=== PATIENT | male | born 1950 | race Native Hawaiian/Other Pacific Islander ===

== ENCOUNTER 2023-01-28 17:32 | Emergency (ER) | payer OTHER ==
[~2023-01-28] VITALS: Ht 165.1 cm; Wt 76.2 kg
[2023-01-28 17:32] VITALS: BP 157/83; TEMP 97.9
[~2023-01-28 17:32] MED LIST: AMOX875T8 PO
[2023-01-28 18:22] LABS: PLATELET COUNT 263 K/uL (142-355)
[2023-01-28 18:48] LABS: POTASSIUM 4.1 mmol/L (3.6-5.2)
[2023-01-28] MEDS ORDERED: PREVALITE4 G1 PO (19:53)
[2023-01-28] MEDS ORDERED: LISI20TA11 PO (19:54)
[2023-01-28] MEDS ORDERED: DIVALPROEX125 MG PO (19:54)
[2023-01-28] MEDS ORDERED: TAMS0.4C PO (19:54)
[2023-01-28] MEDS ORDERED: OXYC5TAB24 PO (19:55)
[2023-01-28] MEDS ORDERED: MELATONIN5 M2 PO (19:55)
[2023-01-28] MEDS ORDERED: QUET25TA2 PO (19:56)
[2023-01-28] MEDS ORDERED: QUET100T2 PO (19:56)
[2023-01-28] MEDS ORDERED: RIVASTIGMI4.6 MG/24 TD (19:56)
[2023-01-28] MEDS ORDERED: CARB25TA29 PO (19:57)
== END 2023-01-28 19:21 | disposition still patient (30) ==
LOC: ED 17:32
PROVIDERS: Family Medicine
DX: R45.6 Violent behavior (principal); F41.9 Anxiety disorder, unspecified; Z02.79 Encounter for issue of other medical certificate
CPT/HCPCS: 80053; 81002; 85027; 87635; 93005; 99283; U0003